=== PATIENT | male | born 1990 | race American Indian/Alaskan Native ===

== ENCOUNTER 2016-04-29 06:37 | Emergency (ER) | payer OTHER, MEDICAID ==
[2016-04-29] MEDS ORDERED: MOTRIN PO ONE (07:33)
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
--- NOTE | 2016-04-29 09:29 | XRay Report ---
RIGHT KNEE THREE VIEWS: 04/29/16 06:37:00 CLINICAL: Knee pain. FINDINGS: Normal bones, joints and soft tissues. No fracture or dislocation. No joint effusion. IMPRESSION: Normal.
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
[2016-04-29 09:53] LABS: Basophils % (Auto) 0.5 % (0.0-1.8); Eosinophils % (Auto) 0.1 % (0.0-4.3); Hematocrit 47.9 % (35.5-45.6); Hemoglobin 16.1 gm/dl (11.8-15.2); Mean Corpuscular HGB Conc 34 % (32-34); Mean Corpuscular Hemoglobin 30 pg (28-32); Mean Corpuscular Volume 90 fl (84-94); Red Cell Distribution Width 13.5 % (13.2-15.2); White Blood Count 5.8 K/mm3 (4.5-11.0)
[2016-04-29 10:02] LABS: Anion Gap 20 mmol/L; Blood Urea Nitrogen 9 mg/dL (9-20); Calcium 9.7 mg/dL (8.4-10.2); Carbon Dioxide 26 mmol/L (22-30); Chloride 100.7 mmol/L (98-107); Glucose 91 mg/dL (75-100); Potassium 4.1 mmol/L (3.6-5.0); Sodium 143 mmol/L (137-145)
[2016-04-29 10:03] LABS: Urine Drugs of Abuse Note Disclamer
[2016-04-29 10:09] LABS: Platelet Count 208 K/mm3 (140-440)
[2016-04-29 10:09] LABS: Alanine Aminotransferase 40 units/L (7-56); Albumin/Globulin Ratio 1.7 %; Alkaline Phosphatase 77 units/L (35-129); Bilirubin,Total 0.3 mg/dL (0.1-1.2)
[2016-04-29 10:16] LABS: Bilirubin,Direct < 0.2 mg/dL (0-0.2)
[2016-04-29 11:02] VITALS: BP 136/87
== END 2016-04-29 11:13 ==
LOC: ED 06:37
DX: S83.8X1A Sprain of other specified parts of right knee, initial encounter (principal); R07.89 Other chest pain; F17.200 Nicotine dependence, unspecified, uncomplicated; F12.90 Cannabis use, unspecified, uncomplicated; V89.2XXA Person injured in unspecified motor-vehicle accident, traffic, initial encounter; Y93.89 Activity, other specified; Y99.9 Unspecified external cause status; Y92.410 Unspecified street and highway as the place of occurrence of the external cause
CPT/HCPCS: 36415; 71111; 73562; 80048; 80074; 80307; 85025; 99284; G0480; 80320

== ENCOUNTER 2021-01-29 19:16 | Emergency (ER) | payer MEDICAID, OTHER ==
[2021-01-29] MEDS ORDERED: PANTOPRAZOLE 40 MG INJ IV ONE (19:35)
[2021-01-29] MEDS ORDERED: ONDANSETRON 4 MG/2 ML INJ IV ONE (19:35)
[2021-01-29] MEDS ORDERED: SODIUM CHLORIDE 0.9% 1000 ML 1,000 ML IV ONE ×2 (19:35→19:36)
--- NOTE | 2021-01-29 19:36 | Emergency Department Report ---
ED Abdominal Pain HPI - General Chief Complaint: Abdominal Pain Stated Complaint: STOMACH PAIN/WEAKNESS/VOMITING BLOOD Time Seen by Provider: 01/29/21 19:36 Source: patient Mode of arrival: Ambulatory Limitations: No Limitations - History of Present Illness Initial Comments: Patient presents with multiple complaints. It should be noted that he allows h is mother to speak for him and is not very talkative or informative. He is pacing about the room. Reportedly, the patient developed abdominal symptoms today. He had nausea and vomiting. He is reportedly had hematemesis and bilious vomiting. He reports generalized abdominal pain. He does not remember what happened yesterday. He states that he remembers going to work. 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 He does not remember anything after work. He does not know if he went out or not. He does not know if he had dinner. When asked him what he remembers about this morning, he states that he just does not know. He later admits to having 2 beers. Mother was concerned because of the pain and the vomiting and brought the patient here. Patient denies diarrhea. Severity scale (0 -10): 10 - Related Data Previous Rx's Medication Instructions Recorded Last Taken Type Ibuprofen [Motrin] 800 mg PO Q8H #30 tablet 05/01/14 Unknown Rx methOCARBAMOL [Robaxin] 500 mg PO BID #30 tab 05/01/14 Unknown Rx traMADoL [Ultram 50 MG tab] 50 mg PO Q6HR PRN #20 tablet 05/01/14 Unknown Rx Hydrocortisone 1% [Hydrocortisone 1 applicatio TP TID #1 tube 09/23/15 Unknown Rx 1% CREAM] Loratadine (Nf) [Claritin] 10 mg PO DAILY #30 tablet 09/23/15 Unknown Rx Acetaminophen [Tylenol] 500 mg PO Q8H PRN #20 tablet 04/29/16 Unknown Rx Ondansetron [Zofran ODT TAB] 8 mg PO Q8HR PRN #20 tab.rapdis 01/29/21 Unknown Rx Allergies Allergy/AdvReac Type Severity Reaction Status Date / Time Sulfa (Sulfonamide AdvReac Rash Verified 01/29/21 19:23 Antibiotics) ED Review of Systems ROS: Stated complaint: STOMACH PAIN/WEAKNESS/VOMITING BLOOD Other details as noted in HPI Comment: All other systems reviewed and negative Constitutional: denies: fever Eyes: denies: vision change ENT: denies: throat pain Respiratory: denies: cough Cardiovascular: denies: chest pain Endocrine: denies: unexplained weight loss Gastrointestinal: as per HPI Genitourinary: denies: dysuria Musculoskeletal: denies: back pain Skin: denies: rash Neurological: denies: headache Hematological/Lymphatic: denies: easy bruising ED Past Medical Hx - Past Medical History Previous Medical History?: No - Surgical History Past Surgical History?: No - Family History Family history: no significant - Social History Smoking Status: Never Smoker Substance Use Type: Alcohol - Medications Home Medications: Home Medications Medication Instructions Recorded Confirmed Last Taken Type Ibuprofen [Motrin] 800 mg PO Q8H #30 tablet 05/01/14 Unknown Rx methOCARBAMOL [Robaxin] 500 mg PO BID #30 tab 05/01/14 Unknown Rx traMADoL [Ultram 50 MG tab] 50 mg PO Q6HR PRN #20 tablet 05/01/14 Unknown Rx Hydrocortisone 1% [Hydrocortisone 1 applicatio TP TID #1 tube 09/23/15 Unknown Rx 1% CREAM] Loratadine (Nf) [Claritin] 10 mg PO DAILY #30 tablet 09/23/15 Unknown Rx Acetaminophen [Tylenol] 500 mg PO Q8H PRN #20 tablet 04/29/16 Unknown Rx Ondansetron [Zofran ODT TAB] 8 mg PO Q8HR PRN #20 tab.rapdis 01/29/21 Unknown Rx ED Physical Exam - General Limitations: No Limitations, Physical Limitation (Patient is not communicative. He relies on his mother to communicate), Other (Pulse ox noted and normal) General appearance: alert, in distress (Mild and that he is pacing about the room) - Head Head exam: Present: atraumatic, normocephalic, normal inspection - Eye Eye exam: Present: normal appearance, EOMI. Absent: scleral icterus - ENT ENT exam: Present: mucous membranes dry, normal external ear exam - Neck Neck exam: Present: normal inspection. Absent: meningismus - Respiratory Respiratory exam: Present: normal lung sounds bilaterally. Absent: respiratory distress - Cardiovascular Cardiovascular Exam: Present: normal rhythm, tachycardia - GI/Abdominal GI/Abdominal exam: Present: soft, tenderness (Generalized and diffuse). Absent: guarding, rebound - Extremities Exam Extremities exam: Present: normal capillary refill - Back Exam Back exam: Absent: CVA tenderness (R), CVA tenderness (L) - Neurological Exam Neurological exam: Present: alert, oriented X3, CN II-XII intact, normal gait. Absent: motor sensory deficit - Psychiatric Psychiatric exam: Present: other (Withdrawn) - Skin Skin exam: Present: warm, dry ED Course Vital Signs 01/29/21 01/29/21 01/29/21 19:20 20:57 21:21 Temperature 99.2 F Pulse Rate 127 H 112 H 98 H Respiratory 18 18 18 Rate Blood Pressure 121/82 123/69 121/66 [Left] O2 Sat by Pulse 98 100 100 Oximetry - Reevaluation(s) Reevaluation #1: 01/29/21 19:36 IV and labs ordered. Reevaluation #2: 01/29/21 20:00 All records reviewed. Reevaluation #3: 01/29/21 22:13 Patient was feeling better. Labs have been reviewed. ED Medical Decision Making - Lab Data Result diagrams: 01/29/21 19:41 01/29/21 19:41 Rhythm strip: Sinus tachycardia without ectopy. Monitor observed in seconds. - Medical Decision Making Patient presents with nausea and vomiting and abdominal pain. He was dehydrated. He certainly has no evidence of peritonitis. There is no evidence of acute hepatitis or pancreatitis. He does not have distention or tympany to suggest bowel obstruction. There is no right lower quadrant tenderness to suggest appendicitis. He has no recollection of the events, but he has been drinking. Whether this was related to alcohol consumption is not known. He does not recall last night and that could be related to alcohol. Regardless, he is tolerating orals here and was discharged. Critical Care Time: No Critical care attestation.: If time is entered above; I have spent that time in minutes in the direct care of this critically ill patient, excluding procedure time. ED Disposition Clinical Impression: Generalized abdominal pain Nausea & vomiting Qualifiers: Vomiting type: unspecified Vomiting Intractability: non-intractable Qualified Code(s): R11.2 - Nausea with vomiting, unspecified Disposition: 01 HOME / SELF CARE / HOMELESS Is pt being admited?: No Condition: Stable Instructions: Nausea and Vomiting, Adult, [id number], Abdominal Pain, Adult, [id number] Additional Instructions: Have a bland diet. Drink plenty water. Return for problems. Follow-up with your regular doctor for recheck. If you do not have a doctor, follow-up with the referral physician. Prescriptions: Ondansetron [Zofran ODT TAB] 8 mg PO Q8HR PRN #20 tab.rapdis PRN Reason: Nausea Referrals: PRIMARY CARE, [Primary Care Provider] - 3-5 Days VU HECK MD [Staff Physician] - 3-5 Days
--- NOTE | 2021-01-29 20:10 | XRay Report ---
CHEST 1 VIEW 01/29/2021 6:57 PM INDICATION / CLINICAL INFORMATION: GI Bleed. COMPARISON: 04/29/2016 FINDINGS: SUPPORT DEVICES: None. HEART / MEDIASTINUM: No significant abnormality. LUNGS / PLEURA: No significant pulmonary or pleural abnormality. No pneumothorax. ADDITIONAL FINDINGS: No significant additional findings. IMPRESSION: 1. No acute findings. Signer Name: Anirudh Mckinley MD Signed: 01/29/2021 8:05 PM Workstation Name: [id number]
[2021-01-29 20:24] LABS: Basophils # (Auto) 0.1 K/mm3 (0.0-0.1); Basophils % (Auto) 0.4 % (0.0-1.8); Mean Corpuscular HGB Conc 33 % (32-34); Mean Corpuscular Volume 95 fl (84-94); Monocytes # (Auto) 0.4 K/mm3 (0.0-0.8); Monocytes % (Auto) 3.1 % (0.0-7.3); Platelet Count 198 K/mm3 (140-440); Red Blood Count 5.48 M/mm3 (3.65-5.03); Red Cell Distribution Width 15.7 % (13.2-15.2)
[2021-01-29 20:32] LABS: INR 0.91 (0.87-1.13)
[2021-01-29 20:33] LABS: Partial Thromboplastin Time 26.2 Sec. (24.2-36.6)
[2021-01-29 20:42] LABS: Alanine Aminotransferase 46 units/L (7-56); BUN/Creatinine Ratio 13; Blood Urea Nitrogen 14 mg/dL (9-20); Calcium 10.6 mg/dL (8.4-10.2); Hemolysis Index 5
[2021-01-29 22:33] VITALS: BP 118/78
--- NOTE | 2021-02-01 18:53 | Electrocardiograph Report ---
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
== END 2021-01-29 22:33 | disposition home or self-care (01) ==
LOC: ED 19:16
DX: R10.84 Generalized abdominal pain (principal); R11.2 Nausea with vomiting, unspecified; Z72.89 Other problems related to lifestyle; Z79.899 Other long term (current) drug therapy; Z88.2 Allergy status to sulfonamides
CPT/HCPCS: 71045; 80053; 83690; 85025; 85610; 85730; 86850; 86900; 86901; 93005; 96361; 96374; 96375; 99284; C9113; J2405; J7030; 80320; G0480